=== PATIENT | male | born 1975 | race Caucasian/White ===

== ENCOUNTER 2017-12-23 10:37 | Day surgery (SDC) | payer OTHER ==
[2017-12-09 13:50] VITALS: BMI 29.0
--- NOTE | 2017-12-09 14:19 | PAT Medication Instructions ---
Service Date Dec 09, 2017. Current Home Medication List Atorvastatin (Lipitor), 20 MG PO HS Metoprolol Succ (Toprol Xl) (Toprol-Xl), 25 MG PO HS Medication Instructions For Your Scheduled Surgery - Take the following medications as scheduled the night before surgery: Atorvastatin (Lipitor), 20 MG PO HS Metoprolol Succ (Toprol Xl) (Toprol-Xl), 25 MG PO HS NOTHING TO EAT OR DRINK AFTER MIDNIGHT If you have any questions please call us at [phone] or [phone] or [phone]
[2017-12-09 14:58] LABS: BASO % 0.9 %; BASO ABS # 0.05 K/uL (0-0.2); EOS % 6.6 %; EOS ABS # 0.35 K/uL (0-0.5); HEMATOCRIT 43.2 % (42-52); HEMOGLOBIN 15.4 g/dL (14.0-18.0); IG# 0.02 K/uL (0.00-0.02); LYMPH % 37.1 %; LYMPH ABS # 1.98 K/uL (1.2-3.4); MEAN CELL VOLUME 91.5 fL (80-100); MEAN CORPUSCULAR HEMOGLOBIN 32.6 pg (25-34); MEAN CORPUSCULAR HGB CONC 35.6 g/dl (32-36); MEAN PLATELET VOLUME 9.7 fL (7.4-10.4); MONO % 8.2 %; MONO ABS # 0.44 K/uL (0.11-0.59); NEUT % 46.8 %; PLATELET COUNT 186 K/uL (130-400); RED CELL DISTRIBUTION WIDTH CV 12.7 % (11.5-14.5); RED CELL DISTRIBUTION WIDTH SD 42.5 fL (36.4-46.3); WHITE BLOOD COUNT 5.34 K/uL (4.8-10.8)
--- NOTE | 2017-12-09 15:00 | DIAGNOSTIC IMAGING REPORT ---
CHEST 2 VIEWS ROUTINE CLINICAL HISTORY: Preoperative chest COMPARISON STUDY: No previous studies for comparison. FINDINGS: The heart is the upper limits of normal in size. There is no failure. There is no focal pulmonary consolidation. There are no pleural effusions.[ IMPRESSION: No active disease in the chest. Electronically signed by: Kody Vogel M.D. 12/09/2017 2:58 PM Dictated Date/Time: 12/09/2017 2:58 PM
[2017-12-09 15:36] LABS: CREATININE 0.91 mg/dl (0.60-1.40); POTASSIUM 4.5 mmol/L (3.5-5.1)
[~2017-12-23] VITALS: Ht 185.4 cm; Wt 100.9 kg
[~2017-12-23 10:37] MED LIST: ATOR-22 PO; CIPROFLOXACIN / D5W 400 MG IV SCH; METO25TA3 PO
[2017-12-23 11:25] VITALS: BP 132/80; PULSE 72; TEMP 36.8; O2SAT 98; Ht 185.4 cm; Wt 100.9 kg
[2017-12-23] MEDS ORDERED: LIDOCAINE HCL 2% 2 ML VIAL (20MG/ML) ONE (12:29)
[2017-12-23] MEDS ORDERED: FENTANYL CITRATE INJ 50 MCG/1 ML 2 ML VIAL ONE ×3 (12:29→14:38)
[2017-12-23] MEDS ORDERED: PROPOFOL IV EMULSION 10 MG/ML 20 ML VIAL IV ONE (12:29)
[2017-12-23] MEDS ORDERED: MIDAZOLAM HCL 1 MG/ML 2ML VIAL ONE (12:29)
[2017-12-23] MEDS ORDERED: BACITRACIN OINT 15 GM TUBE ONE (12:35)
[2017-12-23] MEDS ORDERED: BUPIVACAINE 0.5 % 5 MG/1 ML MPF 30ML VIAL ONE (12:36)
--- NOTE | 2017-12-23 12:36 | History and Physical ---
History & Physical Date Dec 23, 2017. History of Present Illness The patient is a 42 year old male with complaints of bilateral hydroceles. Present for years, growing in size, increasingly bothersome. Additional History Hepatic Disease: No Endocrine Disorder: No Kidney Disease: No Hypertension: No Heart Disease: No Bleeding Tendencies: No Infectious Diseases: No Allergies Coded Allergies: No Known Allergies (Unverified , 12/09/17) Home Medications Scheduled Atorvastatin (Lipitor), 20 MG PO HS Metoprolol Succ (Toprol Xl) (Toprol-Xl), 25 MG PO HS Physical Examination Skin: warm/dry Eyes: normal inspection ENT: normal ENT inspection Head: normocephalic Neck: supple Respiratory/Chest: lungs clear Cardiovascular: regular rate, rhythm Abdomen / GI: normal bowel sounds Back: normal inspection Extremities: normal inspection Genitourinary - Male: + pertinent finding (hydroceles) Neurologic/Psych: no motor/sensory deficits, alert, oriented x 3 Diagnosis B/l scrotal hydroceles. Plan of Treatment B/l hydrocelectomy
[2017-12-23] MEDS ORDERED: ONDANSETRON INJ 2 MG/ML 2 ML VIAL ONE (13:12)
[2017-12-23] MEDS ORDERED: DEXAMETHASONE SOD INJ 4 MG/ML VIAL ONE (13:12)
[2017-12-23] MEDS ORDERED: KETOROLAC TROMETHAMINE 30 MG/ML VIAL ONE (13:52)
--- NOTE | 2017-12-23 14:03 | [facility] Post Operative Brief Note ---
Immediate Operative Summary Operative Date Dec 23, 2017. Pre-Operative Diagnosis Bilateral Scrotal Hydroceles Post-Operative Diagnosis Same as preoperative Procedure(s) Performed Bilateral Scrotal Hydrocelectomy Surgeon Dr. Carson Santos Mailroom Courier Surgeon(s) None per surgeon Estimated Blood Loss 20ml Findings Consistent with Post-Op Diagnosis Specimens A.) Right Hydrocele Sac Drains carlos Anesthesia Type General Complication(s) none Disposition Accompanied Pt To Recover: yes Disposition: Recovery Room / PACU (stable)
[2017-12-23] MEDS ORDERED: HYDR-3419 PO (14:07)
[2017-12-23] MEDS ORDERED: SODIUM CHLORIDE 0.9% 1000ML 1,000 ML IV SCH (14:08)
--- NOTE | 2017-12-23 14:08 | Discharge Instructions ---
Discharge Instructions Date of Service Dec 23, 2017. Admission Reason for Admission: Hydrocele Discharge Discharge Diagnosis / Problem: hydroceles Discharge Goals Goal(s): Decrease discomfort, Improve function, Increase independence, Improve disease control Activity Recommendations Activity Limitations: resume your previous activity Lifting Limitations: none, no more than 25 pounds, until after follow-up appointment Exercise/Sports Limitations: rest today, until after follow-up appointment May Resume Sexual Activity: when tolerated Shower/Bathe: may shower/bathe in 3 days Driving or Machine Use: resume 1 day after discharge . Instructions / Follow-Up Instructions / Follow-Up Please come to Dr. Santos's office on to have your drain removed. Please change the gauze pads if they become saturated. Current Hospital Diet Patient's current hospital diet: Discharge Diet Recommended Diet: Regular Diet Procedures Procedures Performed: Bilateral Scrotal Hydrocelectomy Pending Studies Studies pending at discharge: no Medical Emergencies . Who to Call and When: Medical Emergencies: If at any time you feel your situation is an emergency, please call 911 immediately. . Non-Emergent Contact Non-Emergency issues call your: Urologist Call Non-Emergent contact if: you have a fever, temperature is above 101.5, your pain is not controlled, your pain is worsening . . "Provider Documentation" section prepared by Calderon Briceño. . VTE Core Measure Inpt VTE Proph given/why not?: Treatment not indicated [place] Drug Monitoring Program Drug Monitoring Findings: unable to access system secondary to internet issues
[2017-12-23] MEDS ORDERED: ACETAMINOPHEN 325 MG TAB PO PRN (14:15)
[2017-12-23] MEDS ORDERED: OXYCODONE/ACETAMINOPHEN 5-325 TAB PO PRN ×2 (14:15)
--- NOTE | 2017-12-23 14:15 | [facility] Operative Report ---
Operative Report Operative Date Dec 23, 2017. Pre-Operative Diagnosis Bilateral Scrotal Hydroceles Post-Operative Diagnosis Same as preoperative Procedure(s) Performed Bilateral Scrotal Hydrocelectomy Surgeon Dr. Carson Santos Retirement Assistant Surgeon(s) None per surgeon Estimated Blood Loss 20ml Findings Large right hydrocele, small left hydrocele Specimens A.) Right Hydrocele Sac Drains carlos Anesthesia Type General Complication(s) none Disposition yes Recovery Room / PACU Indications Large hydroceles Description of Procedure The patient was identified in the preoperative holding area, appropriate informed consents reviewed and completed and he was transported to the operating suite. Upon arrival he received appropriate preoperative antibiotics in the form of ciprofloxacin. Adequate general anesthesia was achieved, and he was placed in supine position where he was sterilely prepped and draped in standard fashion. I began the case by making a midline scrotal raphae incision of approximately 5 cm. I carried this through the superficial tissues and skeletonized the tunica vaginalis through the incision before delivering the large right hydrocele and testis through the incision. I further skeletonized and exposed an intact tunica vaginalis circumferentially. I then made an anterior opening into the tunica vaginalis and drained greater than 800 cc of clear/straw colored fluid. The inner aspect of the tunica vaginalis was inspected and found to be without abnormality. The sac was subsequently opened longitudinally and the redundant lateral aspects excised. I oversewed the cut edge of tunica vaginalis using a running 2-0 Vicryl suture and then meticulously obtained hemostasis from the remaining aspects of the scrotum. I packed a lap sponge into the right hemiscrotum and turned my attention to the left hemiscrotum. Utilizing the same midline raphe incision, I entered into the left hemiscrotum through the septum. I then skeletonized on the tunica vaginalis and incised the tunica vaginalis for length of approximately 2 cm. Internally, the testis appeared to be extremely healthy as did the epididymis and all other aspects of the anatomy. I drained a small amount of straw-colored fluid from the left hydrocele sac. I then ran Bovie electrocautery along the edge of the cut sac followed by oversewing it with 2-0 Vicryl suture. Hemostasis on the left hemiscrotum was excellent. I turned my attention back to the right hemiscrotum and again confirmed excellent hemostasis. Before concluding the scrotal portion of the case, I placed a Carlos drain placing the majority of the drain in the right hemiscrotum, piercing it through the septum and out through a dependent incision in the midline. The drain was sutured in place using a 2-0 Vicryl. Dartos fascia as well as the medial septum were reapproximated utilizing a 2-0 Vicryl in running fashion. Skin was then reapproximated using vertical mattress 3-0 chromic sutures. Hemostasis and cosmetic appearance were appropriate. The wound was infiltrated with half percent Marcaine and bilateral testicular cord blocks were placed utilizing the same half percent Marcaine. Bacitracin was placed over the incision as well as fluffs and a scrotal support. The patient was subsequently extubated and taken to the PACU in stable condition. I attest to the content of the Intraoperative Record and any orders documented therein. Any exceptions are noted below.
[2017-12-23] MEDS ORDERED: ONDANSETRON INJ 2 MG/ML 2 ML VIAL IV PRN (14:45)
[2017-12-23] MEDS ORDERED: ATROPINE SULFATE 0.1 MG/ML 5ML SYR IV PRN (14:45)
[2017-12-23] MEDS ORDERED: FENTANYL CITRATE INJ 50 MCG/1 ML 2 ML VIAL IV PRN (14:45)
[2017-12-23] MEDS ORDERED: EpHEDrine SULFATE INJ 50 MG/ML AMP IV PRN (14:45)
[2017-12-23 15:15] VITALS: BP 126/70; PULSE 74; TEMP 36.6; O2SAT 96
--- NOTE | 2017-12-23 15:31 | Anesthesiology Progress Note ---
Anesthesia Post Op Note Date & Time Dec 23, 2017 at 15:31 Vital Signs Pain Intensity: 0 Vital Signs Past 12 Hours Date Time Temp Pulse Resp B/P (MAP) Pulse Ox O2 Delivery O2 Flow Rate FiO2 12/23/17 15:15 36.6 74 16 126/70 96 Room Air Oxymask 12/23/17 15:01 36.2 12/23/17 14:59 76 16 12/23/17 14:59 76 16 96 12/23/17 14:56 117/79 12/23/17 14:54 76 23 96 12/23/17 14:54 76 23 12/23/17 14:51 116/76 12/23/17 14:49 67 16 12/23/17 14:49 67 16 96 12/23/17 14:46 107/79 12/23/17 14:44 65 16 12/23/17 14:44 65 16 95 12/23/17 14:41 95/67 12/23/17 14:39 63 14 92 12/23/17 14:39 62 14 12/23/17 14:36 109/65 12/23/17 14:34 65 13 12/23/17 14:34 66 13 92 12/23/17 14:33 62 16 93 12/23/17 14:33 63 16 12/23/17 14:32 72 12 94 12/23/17 14:32 67 12 12/23/17 14:31 106/67 12/23/17 14:27 67 17 12/23/17 14:27 67 17 97 12/23/17 14:26 115/78 12/23/17 14:22 58 14 97 12/23/17 14:22 58 14 12/23/17 14:21 108/73 12/23/17 14:18 78 16 12/23/17 14:18 76 16 97 12/23/17 14:16 134/79 12/23/17 14:13 87 15 94 12/23/17 14:13 87 15 12/23/17 14:11 145/95 20 14:09 128/94 12/23/17 14:08 36.6 91 18 128/94 94 Oxymask 10 12/23/17 11:25 36.8 72 22 132/80 (97) 98 Room Air Notes Mental Status: alert / awake / arousable, participated in evaluation Pt Amnestic to Procedure: Yes Nausea / Vomiting: adequately controlled Pain: adequately controlled Airway Patency, RR, SpO2: stable & adequate BP & HR: stable & adequate Hydration State: stable & adequate Anesthetic Complications: no major complications apparent
[2017-12-23 15:45] VITALS: BP 113/70; PULSE 72; TEMP 36.6; O2SAT 96
[2017-12-23 16:10] VITALS: BP 102/56; PULSE 66; TEMP 36.6; O2SAT 96
[2017-12-23 16:30] VITALS: BP 113/65; PULSE 85; TEMP 36.6; O2SAT 96
[2017-12-23 16:45] VITALS: BP 132/77; PULSE 86; TEMP 36.6; O2SAT 95
== END 2017-12-23 17:00 | disposition home or self-care (01) ==
LOC: C.ACU 10:37
PROVIDERS: ATTEND Urology
DX: N43.3 Hydrocele, unspecified (principal); Z79.899 Other long term (current) drug therapy